=== PATIENT | male | born 1980 | race Caucasian/White ===

== ENCOUNTER 2017-07-08 12:15 | Emergency (ER) | payer SELFPAY ==
[2017-07-08] MEDS ORDERED: Lidocaine 1% 20 ML MDV ONE ×2 (12:38→14:05)
== END 2017-07-08 13:01 | disposition home or self-care (01) ==
LOC: BURERS 12:15
DX: L02.416 Cutaneous abscess of left lower limb (principal)
CPT/HCPCS: 99282; J2001

== ENCOUNTER 2017-12-24 00:07 | Emergency (ER) | payer SELFPAY ==
[2017-12-24] MEDS ORDERED: Lidocaine 1% w/Epinephrine 1:100K 30 ML VIAL ONE (00:21)
[2017-12-24] MEDS ORDERED: Sulfameth/Trimethoprim DS 800-160mg TAB ONE (00:43)
== END 2017-12-24 00:49 | disposition home or self-care (01) ==
LOC: BURERS 00:07
DX: L02.31 Cutaneous abscess of buttock (principal); F17.210 Nicotine dependence, cigarettes, uncomplicated
CPT/HCPCS: 10060; J2001

== ENCOUNTER 2017-12-26 16:09 | Emergency (ER) | payer SELFPAY | END 2017-12-26 16:34 | disposition home or self-care (01) | LOC: BURERS 16:09 | DX: Z48.817 Encounter for surgical aftercare following surgery on the skin and subcutaneous tissue (principal); F17.210 Nicotine dependence, cigarettes, uncomplicated; Z79.899 Other long term (current) drug therapy | CPT/HCPCS: 99282 ==